=== PATIENT | male | born 1955 | race Caucasian/White ===

== ENCOUNTER 2020-01-11 10:53 | Emergency (ER) | payer BC, OTHER ==
[~2020-01-11] VITALS: Ht 176.5 cm; Wt 109.5 kg
[~2020-01-11 10:53] MED LIST: ALBU6.7H9 INH
[2020-01-11] MEDS ORDERED: normal saline 1000ml 1,000 ML IV ONE (11:48)
[2020-01-11] MEDS ORDERED: ampicillin/sulbac 3gm/NS 100ml 100 ML IV SCH (11:50)
[2020-01-11 12:29] LABS: BASOPHILS % (AUTO) 0.5 % (0-1); EOSINOPHILS # (AUTO) 0.1 X10'3 (0-0.9); HEMATOCRIT 43.4 % (42.0-52.0); HEMOGLOBIN 14.7 g/dl (14.0-17.9); LYMPHOCYTES # (AUTO) 1.6 X10'3 (1.1-4.8); LYMPHOCYTES % (AUTO) 14.9 % (21-51); MEAN CORPUSCULAR HEMOGLOBIN 30.8 PG (27.0-31.0); MEAN CORPUSCULAR HGB CONC 33.8 g/dL (33.0-36.5); MEAN CORPUSCULAR VOLUME 91.4 FL (78-98); MEAN PLATELET VOLUME 8.7 FL (7.4-10.4); MONOCYTES # (AUTO) 0.9 X10'3 (0-0.9); MONOCYTES % (AUTO) 8.4 % (2-12); NEUTROPHILS # (AUTO) 7.9 X10'3 (1.8-7.7); NEUTROPHILS % (AUTO) 75.2 % (42-75); PLATELET COUNT 203 X10'3 (140-440); RED BLOOD COUNT 4.75 X10'6 (4.70-6.10); RED CELL DISTRIBUTION WIDTH 13.3 % (11.5-14.5); WHITE BLOOD COUNT 10.4 X10'3 (4.5-11.0)
[2020-01-11 12:39] LABS: ALANINE AMINOTRANSFERASE 29 U/L (12-78); ALBUMIN 3.5 G/DL (3.4-5.0); ALBUMIN/GLOBULIN RATIO 0.8 (1.1-1.5); ALKALINE PHOSPHATASE 62 IU/L (46-116); ANION GAP 7 (8-16); ASPARTATE AMINO TRANSFERASE 14 U/L (10-37); BILIRUBIN,TOTAL 0.3 MG/DL (0.1-1.0); BLOOD UREA NITROGEN 15 MG/DL (7-18); BUN/CREATININE RATIO 13.5 (5.4-32.0); CALCIUM 9.2 MG/DL (8.5-10.1); CHLORIDE 105 MMOL/L (99-107); CREATININE 1.11 MG/DL (0.60-1.10); GLUCOSE 109 MG/DL (70-104); POTASSIUM 3.8 MMOL/L (3.5-5.1); SODIUM 139 MMOL/L (135-145); TOTAL CARBON DIOXIDE 26.8 MMOL/L (24-32); TOTAL PROTEIN 7.7 G/DL (6.4-8.2); eGFR 67 ML/MIN
[2020-01-11] MEDS ORDERED: CEPH500C5 PO (13:19)
[2020-01-11] MEDS ORDERED: NAPR-56 PO (13:19)
[2020-01-11 13:50] VITALS: BP 129/71
== END 2020-01-11 14:48 | disposition home or self-care (01) ==
LOC: ER 10:53
DX: L03.115 Cellulitis of right lower limb (principal); Z98.61 Coronary angioplasty status; Z79.2 Long term (current) use of antibiotics; Z79.899 Other long term (current) drug therapy
CPT/HCPCS: 36415; 71045; 80053; 83605; 85025; 85610; 87040; 96365; 99284; J7030; J0295

== ENCOUNTER 2022-05-29 13:54 | Inpatient (IN) | payer BC ==
[~2022-05-29] VITALS: Ht 175.3 cm; Wt 111.8 kg
[~2022-05-29 13:54] MED LIST changes: +ALBU6.7H14 INH; -ALBU6.7H9 INH
[2022-05-29 14:39] LABS: BASOPHILS % (AUTO) 0.7 % (0-1); EOSINOPHILS # (AUTO) 0.1 X10'3 (0-0.9); EOSINOPHILS % (AUTO) 1.5 % (0-6); HEMATOCRIT 47.3 % (42.0-52.0); HEMOGLOBIN 16.4 g/dl (14.0-17.9); LYMPHOCYTES # (AUTO) 1.5 X10'3 (1.1-4.8); LYMPHOCYTES % (AUTO) 22.8 % (21-51); MEAN CORPUSCULAR HEMOGLOBIN 30.8 PG (27.0-31.0); MEAN CORPUSCULAR HGB CONC 34.6 g/dL (33.0-36.5); MEAN CORPUSCULAR VOLUME 88.9 FL (78-98); MEAN PLATELET VOLUME 7.6 FL (7.4-10.4); MONOCYTES # (AUTO) 0.8 X10'3 (0-0.9); MONOCYTES % (AUTO) 11.3 % (2-12); NEUTROPHILS # (AUTO) 4.2 X10'3 (1.8-7.7); NEUTROPHILS % (AUTO) 63.7 % (42-75); PLATELET COUNT 281 X10'3 (140-440); RED BLOOD COUNT 5.32 X10'6 (4.70-6.10); RED CELL DISTRIBUTION WIDTH 13.3 % (11.5-14.5); WHITE BLOOD COUNT 6.7 X10'3 (4.5-11.0)
[2022-05-29 14:49] LABS: ALANINE AMINOTRANSFERASE 28 U/L (12-78); ALBUMIN 3.8 G/DL (3.4-5.0); ALBUMIN/GLOBULIN RATIO 0.9 (1.1-1.5); ALKALINE PHOSPHATASE 75 IU/L (46-116); ANION GAP 4 (8-16); ASPARTATE AMINO TRANSFERASE 14 U/L (10-37); BILIRUBIN,TOTAL 0.4 MG/DL (0.1-1.0); BLOOD UREA NITROGEN 10 MG/DL (7-18); BUN/CREATININE RATIO 10.8 (5.4-32.0); CHLORIDE 104 MMOL/L (99-107); CREATININE 0.93 MG/DL (0.60-1.10); GLUCOSE 215 MG/DL (70-104); LIPASE 134 U/L (73-393); POTASSIUM 3.6 MMOL/L (3.5-5.1); SODIUM 139 MMOL/L (135-145); TOTAL CARBON DIOXIDE 30.8 MMOL/L (24-32); TOTAL PROTEIN 7.9 G/DL (6.4-8.2); eGFR 82 ML/MIN
[2022-05-29] MEDS ORDERED: ringers solution, lacted 1,000 ML IV ONE (17:10)
[2022-05-29] MEDS ORDERED: magnesium 4gm in 100ml NS 100 ML IV PRN (17:40)
[2022-05-29] MEDS ORDERED: ondansetron/PF 4mg/2ml inj IV PRN (17:40)
[2022-05-29] MEDS ORDERED: POTASSIUM BICARB 20meq eff tab 20 MEQ TABLET.EFF PO PRN ×2 (17:40)
[2022-05-29] MEDS ORDERED: LIDOcaine 2% 10ml TOPICAL JELLY (Urojet) TP ONE (17:40)
[2022-05-29] MEDS ORDERED: acetaminophen 325mg tablet PO PRN (17:40)
[2022-05-29] MEDS ORDERED: morphine 2 MG/ML inj. syringe IV PRN ×2 (17:40)
[2022-05-29] MEDS ORDERED: magnesium 2GM in 50ml NS 50 ML IV PRN (17:40)
[2022-05-29] MEDS: normal saline 1000ml 1,000 ML IV SCH (17:40)
[2022-05-29] MEDS ORDERED: glucagon, human recombinant 1mg kit SUBCUT PRN (17:50)
[2022-05-29] MEDS ORDERED: insulin Lispro (HumaLOG) vial - multi-dose SQ SCH (17:50)
[2022-05-29] MEDS ORDERED: MESSAGE TO PHARMACY PO ONE (17:50)
[2022-05-29] MEDS ORDERED: dextrose 50%-water 50ml dispensing syringe IV PRN ×2 (17:50)
[2022-05-29] MEDS ORDERED: DEXTROSE 15 GM of carb/4 tabs (each vial/BOTTLE has 4 tablets) PO PRN ×2 (17:50)
--- NOTE | 2022-05-29 18:00 | NUR ---
INITATED THE NG TUBE ,PT STARTED VOMITING WHILE INSERTING THE NG TUBE ,DR SOLIMAN AT BEDSIDE ,INSTRUCTED TO GIVE BREAK TO THE PATIENT AND THEN PLACE THE NG TUBE ,PT VOMITED APPROX 300 CC FECAL VOMITUS .CLEANED THE PT AND THE BED LINEN .PT FAMILY REMAINED AT THE BEDSIDE DURING THE PROCEDURE.
[2022-05-29 18:11] LABS: HEMOGLOBIN A1C 9.5 % (4.5-6.2)
[2022-05-29] MEDS ORDERED: CHOL100024 PO (18:51)
[2022-05-29] MEDS ORDERED: ROSU20TA31 PO (18:51)
[2022-05-29] MEDS ORDERED: VITA-268 PO (18:51)
[2022-05-29] MEDS ORDERED: CRAN500C4 PO (18:51)
[2022-05-29] MEDS ORDERED: VITA-332 PO (18:51)
[2022-05-29] MEDS ORDERED: DULA3PEN SQ (18:51)
[2022-05-29] MEDS ORDERED: ASPI-1071 PO (18:51)
--- NOTE | 2022-05-29 19:00 | NUR ---
14Fr NG placed without difficulty x 1 attempt, pt tolerated procedure well. NG to low intermittent suction out brown fecal appearing fluid
[2022-05-29] MEDS ORDERED: diazepam inj 5 MG/ML inj. IV ONE (19:20)
[2022-05-29] MEDS: K and/or MAG REPLACEMENT MC SCH (20:00)
[2022-05-29 20:15] LABS: CLARITY,URINE CLEAR (Clear); COLOR,URINE YELLOW (Yellow); GLUCOSE, URINE 500 mg/dl (Neg); KETONES,URINE 15 mg/dl (Neg); LEUKOCYTE ESTERASE ,URINE NEGATIVE (Neg); NITRITES, URINE NEGATIVE (Neg); OCCULT BLOOD,URINE NEGATIVE (Neg); PROTEIN,URINE NEGATIVE (Neg); UROBILINOGEN,URINE 0.2 E.U/dL (0.2-1.0)
[2022-05-29 20:17] LABS: UA COLLECTION TYPE FOLEY CATH
[2022-05-29] MEDS: diatr meglu/diatrizoate 30ml oral sol.-(3 dose) bottle PO SCH (21:53)
[2022-05-29] MEDS: insulin glargine (Lantus) pen - multi-dose SQ SCH (22:51)
[2022-05-30] MEDS: normal saline 1000ml 1,000 ML IV SCH ×2 (04:16→13:48)
--- NOTE | 2022-05-30 04:29 | NUR ---
pt amb to restroom without difficulty, reported loose stools
[2022-05-30] MEDS: diatr meglu/diatrizoate 30ml oral sol.-(3 dose) bottle PO SCH ×2 (07:15→09:21)
--- NOTE | 2022-05-30 07:52 | NUR ---
Patient up to bathroom independently at this time. Gait steady, balanced, states he has been having diarrhea with "some solid pieces".
[2022-05-30] MEDS: K and/or MAG REPLACEMENT MC SCH ×2 (08:00→19:35)
[2022-05-30] MEDS ORDERED: DULAGLUTIDE 3 MG SQ SCH (08:00)
[2022-05-30] MEDS ORDERED: iohexol 300mg/ml 100ml inj. ONE (09:10)
--- NOTE | 2022-05-30 09:21 | NUR ---
Pt took 3rd dose of gastrographin, left with CT in wheelchair. No distress noted.
[2022-05-30 09:24] LABS: BASOPHILS % (AUTO) 0.7 % (0-1); EOSINOPHILS # (AUTO) 0.1 X10'3 (0-0.9); EOSINOPHILS % (AUTO) 1.6 % (0-6); HEMOGLOBIN 15.9 g/dl (14.0-17.9); LYMPHOCYTES # (AUTO) 1.5 X10'3 (1.1-4.8); LYMPHOCYTES % (AUTO) 28.5 % (21-51); MEAN CORPUSCULAR HEMOGLOBIN 31.2 PG (27.0-31.0); MEAN CORPUSCULAR HGB CONC 34.6 g/dL (33.0-36.5); MEAN CORPUSCULAR VOLUME 90.2 FL (78-98); MEAN PLATELET VOLUME 8.2 FL (7.4-10.4); MONOCYTES # (AUTO) 0.9 X10'3 (0-0.9); MONOCYTES % (AUTO) 16.2 % (2-12); NEUTROPHILS # (AUTO) 2.8 X10'3 (1.8-7.7); PLATELET COUNT 263 X10'3 (140-440); RED CELL DISTRIBUTION WIDTH 13.1 % (11.5-14.5); WHITE BLOOD COUNT 5.4 X10'3 (4.5-11.0)
--- NOTE | 2022-05-30 09:34 | NUR ---
Pt back from CT abd via wheelchair, no stress noted.
[2022-05-30 09:36] LABS: ALANINE AMINOTRANSFERASE 29 U/L (12-78); ALBUMIN 3.2 G/DL (3.4-5.0); ALBUMIN/GLOBULIN RATIO 0.8 (1.1-1.5); ALKALINE PHOSPHATASE 61 IU/L (46-116); ANION GAP 13 (8-16); ASPARTATE AMINO TRANSFERASE 12 U/L (10-37); BILIRUBIN,TOTAL 0.6 MG/DL (0.1-1.0); BLOOD UREA NITROGEN 11 MG/DL (7-18); BUN/CREATININE RATIO 13.9 (5.4-32.0); CALCIUM 8.6 MG/DL (8.5-10.1); CHLORIDE 103 MMOL/L (99-107); CREATININE 0.79 MG/DL (0.60-1.10); GLUCOSE 186 MG/DL (70-104); MAGNESIUM 1.7 MG/DL (1.5-2.4); POTASSIUM 3.3 MMOL/L (3.5-5.1); SODIUM 140 MMOL/L (135-145); TOTAL CARBON DIOXIDE 24.4 MMOL/L (24-32); TOTAL PROTEIN 7.1 G/DL (6.4-8.2); eGFR > 90 ML/MIN
[2022-05-30 15:31] LABS: C DIFF SPECIMEN=DIARRHEA? ACCEPTABLE; C DIFFICILE TOXINS A&B NEGATIVE (Neg)
[2022-05-30] MEDS: insulin glargine (Lantus) pen - multi-dose SQ SCH (19:45)
[2022-05-31] MEDS: normal saline 1000ml 1,000 ML IV SCH ×3 (00:27→21:38)
[2022-05-31 01:52] LABS: BASOPHILS % (AUTO) 0.7 % (0-1); EOSINOPHILS # (AUTO) 0.2 X10'3 (0-0.9); EOSINOPHILS % (AUTO) 2.8 % (0-6); HEMATOCRIT 43.3 % (42.0-52.0); HEMOGLOBIN 14.8 g/dl (14.0-17.9); LYMPHOCYTES # (AUTO) 1.7 X10'3 (1.1-4.8); LYMPHOCYTES % (AUTO) 30.2 % (21-51); MEAN CORPUSCULAR HEMOGLOBIN 30.9 PG (27.0-31.0); MEAN CORPUSCULAR HGB CONC 34.1 g/dL (33.0-36.5); MEAN CORPUSCULAR VOLUME 90.4 FL (78-98); MEAN PLATELET VOLUME 7.6 FL (7.4-10.4); MONOCYTES % (AUTO) 16.7 % (2-12); NEUTROPHILS # (AUTO) 2.9 X10'3 (1.8-7.7); NEUTROPHILS % (AUTO) 49.6 % (42-75); PLATELET COUNT 258 X10'3 (140-440); RED BLOOD COUNT 4.79 X10'6 (4.70-6.10); RED CELL DISTRIBUTION WIDTH 13.2 % (11.5-14.5); WHITE BLOOD COUNT 5.7 X10'3 (4.5-11.0)
[2022-05-31 02:05] LABS: ALANINE AMINOTRANSFERASE 30 U/L (12-78); ALBUMIN 2.9 G/DL (3.4-5.0); ALBUMIN/GLOBULIN RATIO 0.8 (1.1-1.5); ALKALINE PHOSPHATASE 50 IU/L (46-116); ANION GAP 13 (8-16); ASPARTATE AMINO TRANSFERASE 14 U/L (10-37); BILIRUBIN,TOTAL 0.6 MG/DL (0.1-1.0); BLOOD UREA NITROGEN 9 MG/DL (7-18); BUN/CREATININE RATIO 11.8 (5.4-32.0); CALCIUM 7.9 MG/DL (8.5-10.1); CHLORIDE 105 MMOL/L (99-107); CREATININE 0.76 MG/DL (0.60-1.10); GLUCOSE 135 MG/DL (70-104); MAGNESIUM 1.7 MG/DL (1.5-2.4); POTASSIUM 3.1 MMOL/L (3.5-5.1); SODIUM 142 MMOL/L (135-145); TOTAL CARBON DIOXIDE 24.2 MMOL/L (24-32); TOTAL PROTEIN 6.6 G/DL (6.4-8.2); eGFR > 90 ML/MIN
[2022-05-31] MEDS: potassium CL 10mEq/100ml bag 100 ML IV PRN ×3 (02:17→04:46)
--- NOTE | 2022-05-31 05:51 | NUR ---
patient having diarhhea bowel movements with gas all night, approximately 5 occurences
[2022-05-31] MEDS: K and/or MAG REPLACEMENT MC SCH ×2 (06:59→20:00)
--- NOTE | 2022-05-31 11:35 | NUR ---
NGT to right nare felt by patient in the back of his throat. NGT auscultated with 30 ml air and was heard in throat. NGT advanced with placement verified via auscultation over abd and clear drainage after eating ice chips. Page sent to DR Wong for KUB verification.
[2022-05-31 17:55] LABS: BASOPHILS % (AUTO) 0.5 % (0-1); EOSINOPHILS # (AUTO) 0.2 X10'3 (0-0.9); EOSINOPHILS % (AUTO) 2.4 % (0-6); HEMATOCRIT 46.3 % (42.0-52.0); HEMOGLOBIN 16.1 g/dl (14.0-17.9); LYMPHOCYTES # (AUTO) 1.6 X10'3 (1.1-4.8); LYMPHOCYTES % (AUTO) 22.1 % (21-51); MEAN CORPUSCULAR HEMOGLOBIN 31.2 PG (27.0-31.0); MEAN CORPUSCULAR HGB CONC 34.8 g/dL (33.0-36.5); MEAN CORPUSCULAR VOLUME 89.8 FL (78-98); MEAN PLATELET VOLUME 7.6 FL (7.4-10.4); MONOCYTES # (AUTO) 1.1 X10'3 (0-0.9); MONOCYTES % (AUTO) 14.2 % (2-12); NEUTROPHILS # (AUTO) 4.5 X10'3 (1.8-7.7); NEUTROPHILS % (AUTO) 60.8 % (42-75); PLATELET COUNT 299 X10'3 (140-440); RED BLOOD COUNT 5.16 X10'6 (4.70-6.10); RED CELL DISTRIBUTION WIDTH 13.4 % (11.5-14.5); WHITE BLOOD COUNT 7.4 X10'3 (4.5-11.0)
[2022-05-31 18:04] LABS: ALANINE AMINOTRANSFERASE 32 U/L (12-78); ALBUMIN 3.3 G/DL (3.4-5.0); ALBUMIN/GLOBULIN RATIO 0.8 (1.1-1.5); ALKALINE PHOSPHATASE 58 IU/L (46-116); ANION GAP 14 (8-16); ASPARTATE AMINO TRANSFERASE 12 U/L (10-37); BILIRUBIN,TOTAL 0.5 MG/DL (0.1-1.0); BLOOD UREA NITROGEN 9 MG/DL (7-18); BUN/CREATININE RATIO 12.7 (5.4-32.0); CALCIUM 8.8 MG/DL (8.5-10.1); CHLORIDE 102 MMOL/L (99-107); CREATININE 0.71 MG/DL (0.60-1.10); GLUCOSE 116 MG/DL (70-104); POTASSIUM 3.4 MMOL/L (3.5-5.1); SODIUM 137 MMOL/L (135-145); TOTAL CARBON DIOXIDE 21.1 MMOL/L (24-32); TOTAL PROTEIN 7.3 G/DL (6.4-8.2); eGFR > 90 ML/MIN
--- NOTE | 2022-05-31 19:25 | NUR ---
Patient in now obvious distress, was up to the bathroom w/o problem and reported liquid watery stool.
[2022-05-31] MEDS: insulin glargine (Lantus) pen - multi-dose SQ SCH (20:43)
[2022-06-01] MEDS: normal saline 1000ml 1,000 ML IV SCH ×3 (05:40→21:13)
[2022-06-01 07:13] LABS: BASOPHILS % (AUTO) 0.5 % (0-1); EOSINOPHILS # (AUTO) 0.2 X10'3 (0-0.9); EOSINOPHILS % (AUTO) 3.3 % (0-6); HEMATOCRIT 43.7 % (42.0-52.0); HEMOGLOBIN 14.9 g/dl (14.0-17.9); LYMPHOCYTES # (AUTO) 1.8 X10'3 (1.1-4.8); LYMPHOCYTES % (AUTO) 25.4 % (21-51); MEAN CORPUSCULAR HEMOGLOBIN 31.1 PG (27.0-31.0); MEAN CORPUSCULAR HGB CONC 34.1 g/dL (33.0-36.5); MEAN PLATELET VOLUME 7.5 FL (7.4-10.4); MONOCYTES # (AUTO) 0.9 X10'3 (0-0.9); MONOCYTES % (AUTO) 13.3 % (2-12); NEUTROPHILS % (AUTO) 57.5 % (42-75); PLATELET COUNT 314 X10'3 (140-440); RED CELL DISTRIBUTION WIDTH 13.2 % (11.5-14.5); WHITE BLOOD COUNT 6.9 X10'3 (4.5-11.0)
[2022-06-01 07:32] LABS: ALANINE AMINOTRANSFERASE 22 U/L (12-78); ALBUMIN 2.9 G/DL (3.4-5.0); ALBUMIN/GLOBULIN RATIO 0.8 (1.1-1.5); ALKALINE PHOSPHATASE 52 IU/L (46-116); ANION GAP 10 (8-16); ASPARTATE AMINO TRANSFERASE 8 U/L (10-37); BILIRUBIN,TOTAL 0.5 MG/DL (0.1-1.0); BLOOD UREA NITROGEN 9 MG/DL (7-18); BUN/CREATININE RATIO 11.1 (5.4-32.0); CALCIUM 8.1 MG/DL (8.5-10.1); CHLORIDE 108 MMOL/L (99-107); CREATININE 0.81 MG/DL (0.60-1.10); GLUCOSE 127 MG/DL (70-104); MAGNESIUM 1.8 MG/DL (1.5-2.4); POTASSIUM 3.9 MMOL/L (3.5-5.1); SODIUM 142 MMOL/L (135-145); TOTAL CARBON DIOXIDE 23.7 MMOL/L (24-32); TOTAL PROTEIN 6.7 G/DL (6.4-8.2); eGFR > 90 ML/MIN
[2022-06-01] MEDS: K and/or MAG REPLACEMENT MC SCH ×2 (07:42→20:00)
[2022-06-01 10:00] VITALS: BP 146/76
[2022-06-01 18:00] VITALS: BP 127/67
--- NOTE | 2022-06-01 18:17 | NUR ---
Patient amb in [place] with family. Denies any bm today. Minimal bowel sounds, passing sm amt gas. NG clamped at [address] Aguilar. Abd distended, per daughter & pt it is not as distended as it was on arrival to ER. No c/o pain.
--- NOTE | 2022-06-01 18:30 | NUR ---
Patient in room ORTHO 4009. I have received report from Zoraida HICKS and had the opportunity to ask questions and assume patient care.
[2022-06-01] MEDS: insulin glargine (Lantus) pen - multi-dose SQ SCH (20:17)
[2022-06-01] MEDS ORDERED: tamsulosin 0.4mg capsule PO SCH (21:00)
[2022-06-01 22:00] VITALS: BP 124/61
[2022-06-02] MEDS: normal saline 1000ml 1,000 ML IV SCH (05:12)
[2022-06-02 06:00] VITALS: BP 158/71
[2022-06-02 06:41] LABS: BASOPHILS % (AUTO) 0.5 % (0-1); EOSINOPHILS # (AUTO) 0.2 X10'3 (0-0.9); EOSINOPHILS % (AUTO) 3.6 % (0-6); HEMATOCRIT 41.2 % (42.0-52.0); HEMOGLOBIN 14.3 g/dl (14.0-17.9); LYMPHOCYTES # (AUTO) 1.6 X10'3 (1.1-4.8); LYMPHOCYTES % (AUTO) 24.5 % (21-51); MEAN CORPUSCULAR HEMOGLOBIN 31.3 PG (27.0-31.0); MEAN CORPUSCULAR HGB CONC 34.7 g/dL (33.0-36.5); MEAN CORPUSCULAR VOLUME 90.3 FL (78-98); MEAN PLATELET VOLUME 7.6 FL (7.4-10.4); MONOCYTES # (AUTO) 0.8 X10'3 (0-0.9); MONOCYTES % (AUTO) 11.7 % (2-12); NEUTROPHILS % (AUTO) 59.7 % (42-75); PLATELET COUNT 297 X10'3 (140-440); RED BLOOD COUNT 4.56 X10'6 (4.70-6.10); RED CELL DISTRIBUTION WIDTH 13.1 % (11.5-14.5); WHITE BLOOD COUNT 6.7 X10'3 (4.5-11.0)
[2022-06-02 06:48] LABS: ALANINE AMINOTRANSFERASE 20 U/L (12-78); ALBUMIN 2.8 G/DL (3.4-5.0); ALBUMIN/GLOBULIN RATIO 0.8 (1.1-1.5); ALKALINE PHOSPHATASE 51 IU/L (46-116); ANION GAP 11 (8-16); ASPARTATE AMINO TRANSFERASE 9 U/L (10-37); BILIRUBIN,TOTAL 0.5 MG/DL (0.1-1.0); BLOOD UREA NITROGEN 7 MG/DL (7-18); CALCIUM 7.9 MG/DL (8.5-10.1); CHLORIDE 109 MMOL/L (99-107); GLUCOSE 118 MG/DL (70-104); MAGNESIUM 1.9 MG/DL (1.5-2.4); POTASSIUM 3.4 MMOL/L (3.5-5.1); SODIUM 141 MMOL/L (135-145); TOTAL CARBON DIOXIDE 20.9 MMOL/L (24-32); TOTAL PROTEIN 6.5 G/DL (6.4-8.2); eGFR > 90 ML/MIN
--- NOTE | 2022-06-02 06:52 | NUR ---
Problems reprioritized. Patient report given, questions answered & plan of care reviewed with Julieta HICKS and Rena HICKS.
--- NOTE | 2022-06-02 07:01 | NUR ---
Patient in room ORTHO 4009. I have received report from Sharda HICKS and had the opportunity to ask questions and assume patient care.
[2022-06-02] MEDS: K and/or MAG REPLACEMENT MC SCH (07:10)
[2022-06-02 10:00] VITALS: BP 145/75
--- NOTE | 2022-06-02 10:25 | NUR ---
DM consult: Per EMR pt with T2DM, current A1c is 9.5%. Pt seen at bedside for written and verbal DM education. Pt reports seeing a physician q 3 months, states he takes Trulicity weekly per rx with no issues, and checks his BG levels weekly per physician with resulting numbers in the 140s. Pt states A1c three months ago was 6.9% and attributes increase to increase stress at home, though states his A1c typically fluctuates. Pt reports limiting his CHO intake, especially at dinner. All of patient's questions were answered at this time. RD contact information provided and pt encouraged to reach out if needed. Pt endorses a good appetite and denies food allergies or difficulty chewing/swallowing. Will continue to follow. Addendum: 06/02/22 at [address] Amended: Links added.
[2022-06-02] MEDS ORDERED: LIDOcaine 2% 10ml TOPICAL JELLY (Urojet) MM ONE (10:55)
--- NOTE | 2022-06-02 11:19 | NUR ---
Inserted 16 FR perez 650 ml out, patent and draining to gravity. Pt. tolerated procedure well.
[2022-06-02] MEDS ORDERED: FLO0.4C PO (12:41)
--- NOTE | 2022-06-02 14:00 | NUR ---
Charting reviewed and agreed with findings.
--- NOTE | 2022-06-02 14:56 | NUR ---
Patient discharge and follow up instructions reviewed with patient and spouse, Ange catheter care reviewed with patient and Spouse, verbalized and demonstrated understanding, Printed instructions given as well. IV removed with canula intact, Patient tolerated well. Patient had multiple liquid bowel movements prior to discharge, stated they where brown with sediment in them. Patient discharged at 1445 accompanied to exit by aid and spouse.
== END 2022-06-02 14:47 | disposition home or self-care (01) | DRG 390 ==
LOC: ER 13:55 → ED HOLD 17:42 → EDBEDREQ 05-30 00:36 → ORTHO 4S 06-01 10:00
PROVIDERS: ADMIT Family Medicine; ATTEND Family Medicine
PROC: 0D9670Z Drainage of Stomach with Drainage Device, Via Natural or Artificial Opening (ICD-10-PCS; principal; 2022-05-30)
DX: K56.600 Partial intestinal obstruction, unspecified as to cause (principal); E11.9 Type 2 diabetes mellitus without complications; N31.9 Neuromuscular dysfunction of bladder, unspecified; N40.0 Benign prostatic hyperplasia without lower urinary tract symptoms; E87.6 Hypokalemia; G47.33 Obstructive sleep apnea (adult) (pediatric); F17.220 Nicotine dependence, chewing tobacco, uncomplicated; Z83.3 Family history of diabetes mellitus; Z88.5 Allergy status to narcotic agent; Z98.61 Coronary angioplasty status; Z79.899 Other long term (current) drug therapy; Z82.49 Family history of ischemic heart disease and other diseases of the circulatory system; Z71.6 Tobacco abuse counseling
CPT/HCPCS: 36415; 71045; 74018; 74176; 80053; 81003; 82948; 83036; 83690; 83735; 85025; 87045; 87046; 87081; 87324; 87449; 89055; 99285; A4314; A5200; G0378; J1815; J3360; J3480; J3490; J7030; J7042; J7120; Q9963; Q9967